=== PATIENT | male | born 1945 | race Caucasian/White ===

== ENCOUNTER 2025-02-18 14:19 | Observation (INO) ==
--- NOTE | 2025-02-18 14:22 | Emergency Department Note ---
Impression & Plan Acute confusion, Brain TIA, Hypertension ED Provider Note NAME: JEREMIAH GUILLEN AGE: 79 SEX: M : 1945 ARRIVES VIA: Ambulance INFORMANT: Patient, friend Prince, EMS ED PROVIDER(S): Ismael Matson MD CHIEF COMPLAINT: Change in mentation, confusion MEDICAL DECISION MAKING: Patient presents as a stroke alert. IV was established and blood work was obtained. Symptoms have essentially resolved at the time of presentation but the friend reports that the patient was essentially nonverbal for 45 minutes. Unclear whether or not the patient could have had a TIA or seizure but no reported seizure-like activity. Initial CT head negative. Patient has a nonfocal logic exam no reported trauma does not take any blood thinners. Patient was advised to stay in hospital but refused. AMA paperwork was completed and the patient was of sound mind after discussing risks and benefits including but not limited to disability pain stroke or cardiac arrest. Prior to the patient actually leaving the facility the patient had second thoughts after discussing more with his friend and the patient was amenable to staying in hospital. The patient was ordered first dose aspirin as well as atorvastatin 80 mg. I did speak with Dr. Horan. I also did inform the patient that he would have his license suspended given what occurred today until he follows up with a PCP. License suspension [facility] via fax per equal opportunity counselor. Patient admitted to the medicine service. Discussion w/ other healthcare providers: Dr. Horan inpatient medicine service Prior /Outside records reviewed: None Differential diagnosis: Infection, dehydration, metabolic abnormality, hypo/hyperglycemia, electrolyte imbalance, anemia, UTI, pneumonia, thyroid dysfunction among others were considered. Diagnostics, as interpreted by me: ECG: Sinus with PVCs noted sinus almost peers in a pattern of bigeminy, ventricular to 77 with normal intervals and axis. No ST elevations. Cardiac monitoring: An order was placed for continuous cardiac monitoring. The monitor shows a rate of 79 with sinus rhythm. Patient was placed on pulse oximetry Medical decision rules: None Imaging studies: I informally interpreted the patient's chest x-ray does not show obvious pneumonia with formal report to follow. HPI: I received a medical command call prior to arrival. 79-year-old male with reportedly no past medical history presented here for the [employer] game when around 1:00 the patient became less responsive seen to be confused only answering in one-word responses. No reported falls or trauma. Patient's blood pressure per EMS was 174/78 satting at 97% with a blood sugar of 105 sinus rhythm in the 70s. Patient reportedly does not take any blood thinning medications. Patient presents here the patient denies any current symptoms. He denies head neck chest back or abdominal pain. No reported nausea or vomiting. Patient denies any pertinent past medical or history. He reports appendicitis years ago. I did speak with the patient's friend Prince with whom he meets up with at [email or web address] and states when he got the car he seemed to be fine but then had this episode where he was unresponsive and nonverbal for about 45 minutes seem to be teary-eyed and subsequently started to say okay called EMS and they presented here. Prince his friend states that he does seem to be at his best compared to before. There was no reported syncope or seizure-like activity. PAST MEDICAL HISTORY: No pertinent past medical history PAST SURGICAL HISTORY: Appendectomy SOCIAL HISTORY: Denies alcohol tobacco or drug use. HOME MEDICATIONS: See Below ALLERGIES: See Below VITALS: See Below PHYSICAL EXAMINATION: GENERAL: NAD, non-toxic. EYE EXAM: Normal conjunctiva. PERRL, no anisocoria and EOM's grossly intact w/o pain. OROPHARYNX: Moist mucus membranes, grossly normal dentition. NECK: Trachea midline, no stridor. LUNGS: Clear to auscultation. Normal chest wall mechanics. HEART: NSR, no MRG. ABDOMEN: Abdomen soft, non-tender, no masses, no rebound or guarding. BACK: No CVA TTP. SKIN: No rashes and no bruising. UPPER EXTREMITIES: Upper extremities are grossly normal. LOWER EXTREMITIES: Grossly normal, no edema. NEURO EXAM: Awake and alert, follows commands, no obvious facial asymmetry, normal speech, moves all 4 extremities. Good [id number], no drift and no sensory deficits. Past Med/Surg History Problem List (Updated 02/18/25 @ 17:44 by Ismael Matson MD) Hypertension (Acute) Abnormal EKG Anemia Brain TIA (Acute) Acute confusion (Acute) Medical History Hearing loss uses hearing aids Surgical History S/P cataract surgery S/P appendectomy Family History Father Myocardial infarction Social History Smoking Status: Unknown if ever smoked Feels Safe at Home: Yes Allergies Allergies Allergy/AdvReac Type Severity Reaction Status Date / Time No Known Allergies Allergy Verified 02/18/25 15:18 Home Meds Home Medications Medication Instructions Recorded Confirmed No Known Home Medications 02/18/25 02/18/25 Results & Data (ED) Vital Signs Vital Signs - 24 hr 02/18/25 14:20 02/18/25 15:30 02/18/25 15:30 Pulse Rate 83 73 67 Respiratory Rate 16 15 15 Respiratory Effort / Characteristics Non-Labored Spontaneous Respiratory Depth Normal Respiratory Pattern Regular Blood Pressure 174/77 H 156/86 H 156/86 H Blood Pressure Mean 109 109 113 Blood Pressure Position Semi-fowlers Pulse Oximetry 97 94 95 Oxygen Delivery Method Room Air Sepsis Recent Fever Within 48 Hours No Sepsis New/Unexplained Change in Mental Status Yes Sepsis Action Taken by Nursing No Action Required 02/18/25 16:03 02/18/25 16:26 02/18/25 16:31 Pulse Rate 70 71 66 Respiratory Rate 20 14 Respiratory Effort / Characteristics Respiratory Depth Respiratory Pattern Blood Pressure 134/104 H 167/73 H Blood Pressure Mean 114 93 Blood Pressure Position Pulse Oximetry Oxygen Delivery Method Sepsis Recent Fever Within 48 Hours Sepsis New/Unexplained Change in Mental Status Sepsis Action Taken by Nursing 02/18/25 16:51 02/18/25 17:00 02/18/25 17:00 Pulse Rate 70 Respiratory Rate 22 Respiratory Effort / Characteristics Respiratory Depth Respiratory Pattern Blood Pressure 153/94 H 153/94 H Blood Pressure Mean 112 112 Blood Pressure Position Pulse Oximetry Oxygen Delivery Method Sepsis Recent Fever Within 48 Hours Sepsis New/Unexplained Change in Mental Status Sepsis Action Taken by Nursing 02/18/25 17:00 Pulse Rate 69 Respiratory Rate 19 Respiratory Effort / Characteristics Respiratory Depth Respiratory Pattern Blood Pressure Blood Pressure Mean Blood Pressure Position Pulse Oximetry Oxygen Delivery Method Sepsis Recent Fever Within 48 Hours Sepsis New/Unexplained Change in Mental Status Sepsis Action Taken by Prison Medications Current Medication List: was personally reviewed by me Laboratory Data Attestation: I reviewed the patient's lab results. 02/18/25 14:35 02/18/25 14:35 Lab Results 02/18/25 02/18/25 02/18/25 Range/Units 14:31 14:35 14:40 WBC 4.80 (4.8-10.8) K/ul RBC 3.64 L (4.70-6.10) M/uL Hgb 9.7 L (14.0-18.0) g/dl POC Hgb 10.2 L (14.0-18.0) g/dl Hct 30.6 L (42.0-52.0) % POC Hct 30 L (42-52) % MCV 84.1 (80.0-100.0) fL MCH 26.6 (25.0-34.0) pg MCHC 31.7 L (32.0-36.0) g/dL RDW Std Deviation 48.4 H (36.4-46.3) fL RDW Coeff of Robert 15.7 H (11.5-14.5) % Plt Count 172 (130-400) K/uL MPV 10.3 (9.4-12.4) fL Immature Gran % (Auto) 0.2 % Neut % (Auto) 67.1 % Lymph % (Auto) 17.3 % [place] % (Auto) 13.3 % Eos % (Auto) 1.7 % Baso % (Auto) 0.4 % Neut # (Auto) 3.22 (1.40-6.50) K/uL Lymph # (Auto) 0.83 L (1.20-3.40) K/uL [place] # (Auto) 0.64 H (0.11-0.59) K/uL Eos # (Auto) 0.08 (0.00-0.50) K/uL Baso # (Auto) 0.02 (0.00-0.20) K/uL Immature Gran # (Auto) 0.01 (0.01-0.20) K/uL PT 11.4 (9.0-12.0) Seconds INR 1.1 (0.9-1.1) APTT 26 (21-31) Seconds PTT Ratio 1.0 POC Sodium 137 (135-144) mmol/L Sodium 135 L (136-145) mmol/L POC Potassium 3.7 (3.3-5.0) mmol/L Potassium 3.6 (3.5-5.1) mmol/L POC Chloride 102 (101-112) mmol/L Chloride 104 (98-107) mmol/L Carbon Dioxide 26 (21-32) mmol/L POC Total CO2 22 L (24-31) mmol/L Anion Gap 5 (3-11) POC Anion Gap 18.0 (16-25) mmol/L POC BUN 19 H (7-18) mg/dl BUN 21 (6-23) mg/dl Creatinine 0.94 (0.6-1.4) mg/dl POC Creatinine 1.0 (0.6-1.3) mg/dl Est Cr Clr Drug Dosing 65.8 ml/min eGFR 83.49 BUN/Creatinine Ratio 22.3 H (10-20) Glucose 100 H (70-99(Fasting)) mg/dl POC Glucose 101 H (70-99) mg/dl POC Glucose (other) 98 (70-99) mg/dl Calcium 8.7 (8.6-10.3) mg/dl POC Ioniz Calcium Reina 1.14 (1.12-1.32) mmol/l Magnesium 1.8 (1.7-2.4) mg/dl Total Bilirubin 0.4 (0.2-1.0) mg/dl AST 13 (13-39) U/L ALT 7 (7-52) U/L Alkaline Phosphatase 57 (34-104) U/L Troponin I High Sens < 2.3 (0-20) pg/ml Total Protein 6.6 (6.0-8.3) gm/dl Albumin 3.5 (3.4-5.0) gm/dl Globulin 3.1 (2.5-4.0) gm/dl Albumin/Globulin Ratio 1.1 (0.9-2) Administered Medications Discontinued Medications Ioversol (Optiray 320 125ml) 118 ml IV ONCE ONE Stop: 02/18/25 14:26 Last Admin: 02/18/25 14:27 Dose: 118 ml Documented By: MARY Imaging Data Radiologist's Impression: Head CT 02/18/25 14:20 CT head without contrast History: Comparison: None Technique: Using multidetector thin collimation helical acquisition technique, axial, coronal and sagittal CT images from the skull base to the vertex were obtained without intravenous contrast. Dose reduction techniques were achieved by using automatic exposure control and/or adjustment of mA and/or kV according to patient size and/or use of iterative reconstruction technique. Findings: There is no acute territorial infarct, hemorrhage or abnormal mass effect. There is no intracranial mass identified. Moderate atrophy and small vessel ischemic white matter disease. No shift of midline structures. No depressed skull fracture. No extra-axial fluid collection. Posterior fossa structures are grossly unremarkable. Discussed with Dr. Matson at 2:40 PM on 02/18/2025 EST Impression No acute intracranial process. Chronic changes of atrophy and small vessel disease. Electronically signed by Dolores Andrade 02-18-2025 2:40 PM Head CTA 02/18/25 14:20 CT angiogram of the neck CT angiogram of the brain . Technique: HEAD CT: Using multidetector thin collimation helical acquisition technique, axial, coronal and sagittal CT images from the skull base to the vertex were obtained without intravenous contrast. HEAD and NECK CTA: During rapid bolus intravenous injection of nonionic contrast material, axial images were obtained using thin collimation multidetector helical technique from the base of the neck through the of vertex of the head. This CT angiogram data was reconstructed at thin intervals with mild overlap. 3D reconstructions were obtained. The axial source images, multiplanar reformations, 3D reconstructions in both maximum intensity projection display and volume rendered models were reviewed. Dose reduction techniques were achieved by using automatic exposure control and/or adjustment of mA and/or kV according to patient size and/or use of iterative reconstruction technique. Comp: Same day Ct head, History and Findings: Stroke Head CTA demonstrates : Distal vertebral arteries, basilar artery and posterior circulation appeared normal. Internal carotid arteries are patent. Minimal plaque noted in the cavernous portion. Patent bilateral ICAs. Patent bilateral MCAs Impression No significant stenosis. No aneurysm or malformation Electronically signed by Dolores Andrade 02-18-2025 2:48 PM Neck CTA 02/18/25 14:20 CT angiogram of the neck CT angiogram of the brain . Technique: HEAD CT: Using multidetector thin collimation helical acquisition technique, axial, coronal and sagittal CT images from the skull base to the vertex were obtained without intravenous contrast. HEAD and NECK CTA: During rapid bolus intravenous injection of nonionic contrast material, axial images were obtained using thin collimation multidetector helical technique from the base of the neck through the of vertex of the head. This CT angiogram data was reconstructed at thin intervals with mild overlap. 3D reconstructions were obtained. The axial source images, multiplanar reformations, 3D reconstructions in both maximum intensity projection display and volume rendered models were reviewed. Dose reduction techniques were achieved by using automatic exposure control and/or adjustment of mA and/or kV according to patient size and/or use of iterative reconstruction technique. Comp: Same day Ct head, History and Findings: Neck CTA: Subclavian veins are patent. Right common carotid artery is patent. Minimal plaque in the bulb area of the right carotid artery without significant stenosis. Patent right ICA. Patent left common carotid artery. Minimal plaque noted in the proximal left ICA. No stenosis of significance. Patent bilateral vertebral arteries with a slightly dominant left vertebral artery. Impression: No significant stenosis. Electronically signed by Dolores Andrade 02-18-2025 2:45 PM Chest X-Ray 02/18/25 14:37 Chest radiograph, one view History confusion Comparison: Findings: Single AP view of the chest performed. No focal consolidation or pleural effusion. No pneumothorax. The cardiomediastinal silhouette is within normal limits. Normal pulmonary vascularity. No evidence for lymphadenopathy. No visualized bony or soft tissue abnormality. Impression: Normal chest radiograph Electronically signed by Dolores Andrade 02-18-2025 3:16 PM Discharge Plan Visit Data Chief Complaint: Stroke/CVA Symptoms Stated Complaint: STROKE ALERT ED Provider: Ismael Matson Discharge Problem: Acute confusion, Brain TIA, Hypertension Patient Disposition: Against Medical Advice Condition: Fair Discharge Instructions Activity Restrictions/Additional Instructions: Please return to the emergency department if you have worsening or recurrent symptoms not amenable to at-home treatment. Please call for a follow-up appointment with her primary care physician. Please take your medications as prescribed. If you have other concerns and/or complaints please feel free to also call your primary care physician's office or return the ED for further evaluation, management, and treatment. Reason for visit: Acute confusion Treatments during visit: Blood work and imaging Testing revealed: Your testing showed anemia with a normal white count. Your platelet count was unremarkable. Your kidney function was unremarkable. Your CAT scans and chest x-ray are grossly unremarkable however your symptoms are concerning for possible TIA or mini stroke You did choose to leave AGAINST MEDICAL ADVICE. Please ensure that you establish immediate with a primary care as he may benefit from further evaluation. You may consider taking a baby aspirin as this may lower your risk for future stroke. Please follow up with: [Your Primary Care Provider] It is felt you are safe for discharge, however if any concerning signs or symptoms develop, call 911 or return to the Emergency Department. Specific signs or symptoms requiring return: Worsening symptoms numbness tingling weakness or confusion You are not to drive until you are seen and cleared by your primary care doctor. Prescriptions Prescriptions: No Action No Known Home Medications Referrals Referrals: PCP,NO [Primary Care Provider] - Discharge Problem: Hypertension Qualifiers: Hypertension type: unspecified Qualified Code(s): I10 - Essential (primary) hypertension
[2025-02-18] MEDS: OPTIRAY 320 125ml IV ONE (14:27)
--- NOTE | 2025-02-18 14:40 | CT Scan Report ---
CT head without contrast History: Comparison: None Technique: Using multidetector thin collimation helical acquisition technique, axial, coronal and sagittal CT images from the skull base to the vertex were obtained without intravenous contrast. Dose reduction techniques were achieved by using automatic exposure control and/or adjustment of mA and/or kV according to patient size and/or use of iterative reconstruction technique. Findings: There is no acute territorial infarct, hemorrhage or abnormal mass effect. There is no intracranial mass identified. Moderate atrophy and small vessel ischemic white matter disease. No shift of midline structures. No depressed skull fracture. No extra-axial fluid collection. Posterior fossa structures are grossly unremarkable. Discussed with Dr. Matson at 2:40 PM on 02/18/2025 EST Impression No acute intracranial process. Chronic changes of atrophy and small vessel disease. Electronically signed by Dolores Andrade 02-18-2025 2:40 PM
--- NOTE | 2025-02-18 14:46 | CT Scan Report ---
CT angiogram of the neck CT angiogram of the brain . Technique: HEAD CT: Using multidetector thin collimation helical acquisition technique, axial, coronal and sagittal CT images from the skull base to the vertex were obtained without intravenous contrast. HEAD and NECK CTA: During rapid bolus intravenous injection of nonionic contrast material, axial images were obtained using thin collimation multidetector helical technique from the base of the neck through the of vertex of the head. This CT angiogram data was reconstructed at thin intervals with mild overlap. 3D reconstructions were obtained. The axial source images, multiplanar reformations, 3D reconstructions in both maximum intensity projection display and volume rendered models were reviewed. Dose reduction techniques were achieved by using automatic exposure control and/or adjustment of mA and/or kV according to patient size and/or use of iterative reconstruction technique. Comp: Same day Ct head, History and Findings: Neck CTA: Subclavian veins are patent. Right common carotid artery is patent. Minimal plaque in the bulb area of the right carotid artery without significant stenosis. Patent right ICA. Patent left common carotid artery. Minimal plaque noted in the proximal left ICA. No stenosis of significance. Patent bilateral vertebral arteries with a slightly dominant left vertebral artery. Impression: No significant stenosis. Electronically signed by Dolores Andrade 02-18-2025 2:45 PM
[2025-02-18 14:47] LABS: Hematocrit (blood only) 30.6 % (42.0-52.0); Hemoglobin 9.7 g/dl (14.0-18.0); Immature Granulocytes # (auto) 0.01 K/uL (0.01-0.20); Immature Granulocytes % (auto) 0.2 %; Mean Corpuscular Hemoglobin 26.6 pg (25.0-34.0); Mean Corpuscular Volume 84.1 fL (80.0-100.0); Platelet Count 172 K/uL (130-400); RDW Standard Deviation 48.4 fL (36.4-46.3); Red Blood Count 3.64 M/uL (4.70-6.10); White Blood Count 4.80 K/ul (4.8-10.8)
--- NOTE | 2025-02-18 14:48 | CT Scan Report ---
CT angiogram of the neck CT angiogram of the brain . Technique: HEAD CT: Using multidetector thin collimation helical acquisition technique, axial, coronal and sagittal CT images from the skull base to the vertex were obtained without intravenous contrast. HEAD and NECK CTA: During rapid bolus intravenous injection of nonionic contrast material, axial images were obtained using thin collimation multidetector helical technique from the base of the neck through the of vertex of the head. This CT angiogram data was reconstructed at thin intervals with mild overlap. 3D reconstructions were obtained. The axial source images, multiplanar reformations, 3D reconstructions in both maximum intensity projection display and volume rendered models were reviewed. Dose reduction techniques were achieved by using automatic exposure control and/or adjustment of mA and/or kV according to patient size and/or use of iterative reconstruction technique. Comp: Same day Ct head, History and Findings: Stroke Head CTA demonstrates : Distal vertebral arteries, basilar artery and posterior circulation appeared normal. Internal carotid arteries are patent. Minimal plaque noted in the cavernous portion. Patent bilateral ICAs. Patent bilateral MCAs Impression No significant stenosis. No aneurysm or malformation Electronically signed by Dolores Andrade 02-18-2025 2:48 PM
[2025-02-18 15:05] LABS: Alanine Aminotransferase 7 U/L (7-52); Albumin Globulin Ratio 1.1 (0.9-2); Alkaline Phosphatase 57 U/L (34-104); Anion Gap 5 (3-11); Bilirubin,Total 0.4 mg/dl (0.2-1.0); Blood Urea Nitrogen 21 mg/dl (6-23); Calcium 8.7 mg/dl (8.6-10.3); Carbon Dioxide 26 mmol/L (21-32); Chloride 104 mmol/L (98-107); Creatinine Clr Calc Pharmacy 65.8 ml/min; Globulin 3.1 gm/dl (2.5-4.0); Glucose 100 mg/dl (70-99(Fasting)); Magnesium 1.8 mg/dl (1.7-2.4); Potassium 3.6 mmol/L (3.5-5.1); Sodium 135 mmol/L (136-145); Total Protein 6.6 gm/dl (6.0-8.3)
[2025-02-18 15:13] LABS: INR 1.1 (0.9-1.1); Partial Thromboplastin Time 26 Seconds (21-31); Prothrombin Time 11.4 Seconds (9.0-12.0)
--- NOTE | 2025-02-18 15:16 | XRay Report ---
Chest radiograph, one view History confusion Comparison: Findings: Single AP view of the chest performed. No focal consolidation or pleural effusion. No pneumothorax. The cardiomediastinal silhouette is within normal limits. Normal pulmonary vascularity. No evidence for lymphadenopathy. No visualized bony or soft tissue abnormality. Impression: Normal chest radiograph Electronically signed by Dolores Andrade 02-18-2025 3:16 PM
--- NOTE | 2025-02-18 16:28 | History & Physical Report ---
Date of Service February 18, 2025 Assessment & Plan (1) Brain TIA: (2) Acute confusion: (3) Anemia: (4) Abnormal EKG: Plan This is a 79 y/o male with no significant medical history who presented to the ED today as a stroke alert. Initial work-up in the ED was negative for stroke - CT brain, CTA head/neck were negative. Initial troponin negative. EKG personally reviewed and shows multiple PACs, single PVC. Pt also noted to be anemic with hemoglobin of 9.7. Pt does not recall being diagnosed with anemia previously, has not had routine colonoscopy. #Transient episode of confusion #Possible TIA - Observe in PCU overnight - MRI brain for further evaluation - Consult neurology - Lipid panel, A1c in the AM - Start daily low-dose aspirin, statin for now - PT/OT consults - ECHO #Anemia - uncertain etiology, uncertain chronicity - Check iron panel, B12, retic count - Will need outpatient f/u for additional work-up including possible colonoscopy +/- EGD #Abnormal EKG - Monitor on telemetry overnight - ECHO - Repeat EKG in the AM Pt seen and reviewed with collaborating physician, Dr. Horan. Plan of care discussed and as outlined above. Code status: full code DVT prophylaxis: Lovenox Pt will need to establish with a PCP at discharge. I spent a total of 62 minutes coordinating, documenting, and providing care for this patient excluding time spent in the performance of separately billed services or time spent by another provider/QHP. Rosalie Rowland PA-C History of Present Illness Chief Complaint: stroke alert Primary Care Provider: NO PCP This is a 79 y/o male with no significant medical history who presented to the ED today as a stroke alert. Pt was at the [employer] game when he became confused and was less responsive. History obtained from patient and his friend, Prince, at the bedside who witnessed the event. Pt's friend states that when he first met up with pt before the game, pt seemed his usual self. However, a few minutes later, pt seemed to space out and wasn't really responding though never seemed to pass out completely. Pt was sitting and standing the entire time (never fell to the ground or lost his balance). He started to come back around within a few minutes but still wasn't able to answer questions appropriately, wasn't making sense, struggled to communicate/find words. His friend was able to get help from the state police, and pt was brought to the ED via EMS. He has continued to improve since the initial evaluation by EMS. Pt reports some increased stresses in his personal life and states that he's had a lot on his mind, even today during the episode. He has some recollection of the today's events but attributes them to the stress he's currently experiencing. Currently feels back to his baseline. Denies visual changes, weakness, chest pain, palpitations, dyspnea, fevers, chills. Was just able to ambulate to the bathroom in the ED without needing assistance. He has chronic hearing loss, wears hearing aids. Does not routinely follow with a PCP. Typically, reports being very active and eating healthy diet. Allergies Allergy/AdvReac Type Severity Reaction Status Date / Time No Known Allergies Allergy Verified 02/18/25 15:18 Home Medications Medication Instructions Recorded Confirmed Type No Known Home Medications 02/18/25 02/18/25 History Past Med/Surg History Problem List (Updated 02/18/25 @ 17:44 by Ismael Matson MD) Hypertension (Acute) Abnormal EKG Anemia Brain TIA (Acute) Acute confusion (Acute) Medical History Hearing loss uses hearing aids Surgical History S/P cataract surgery S/P appendectomy Family History Father Myocardial infarction Social History Smoking Status: Unknown if ever smoked Feels Safe at Home: Yes Review of Systems Review of Systems: All systems reviewed & are unremarkable except as noted in Subjective Physical Exam Physical Exam: Please see physician note for details of the physical exam. Results & Data Results & Data Vital Signs (Past 12 Hours) Vital Signs Pulse Resp BP Pulse Ox O2 Del Method 02/18/25 16:26 71 02/18/25 15:30 73 15 156/86 H 94 02/18/25 14:20 83 16 174/77 H 97 Room Air Laboratory Results Lab Results 08/30/25 08/30/25 08/30/25 Range/Units 14:31 14:35 14:40 WBC 4.80 (4.8-10.8) K/ul RBC 3.64 L (4.70-6.10) M/uL Hgb 9.7 L (14.0-18.0) g/dl POC Hgb 10.2 L (14.0-18.0) g/dl Hct 30.6 L (42.0-52.0) % POC Hct 30 L (42-52) % MCV 84.1 (80.0-100.0) fL MCH 26.6 (25.0-34.0) pg MCHC 31.7 L (32.0-36.0) g/dL RDW Std Deviation 48.4 H (36.4-46.3) fL RDW Coeff of Robert 15.7 H (11.5-14.5) % Plt Count 172 (130-400) K/uL MPV 10.3 (9.4-12.4) fL Immature Gran % (Auto) 0.2 % Neut % (Auto) 67.1 % Lymph % (Auto) 17.3 % Chester % (Auto) 13.3 % Eos % (Auto) 1.7 % Baso % (Auto) 0.4 % Neut # (Auto) 3.22 (1.40-6.50) K/uL Lymph # (Auto) 0.83 L (1.20-3.40) K/uL Chester # (Auto) 0.64 H (0.11-0.59) K/uL Eos # (Auto) 0.08 (0.00-0.50) K/uL Baso # (Auto) 0.02 (0.00-0.20) K/uL Immature Gran # (Auto) 0.01 (0.01-0.20) K/uL PT 11.4 (9.0-12.0) Seconds INR 1.1 (0.9-1.1) APTT 26 (21-31) Seconds PTT Ratio 1.0 POC Sodium 137 (135-144) mmol/L Sodium 135 L (136-145) mmol/L POC Potassium 3.7 (3.3-5.0) mmol/L Potassium 3.6 (3.5-5.1) mmol/L POC Chloride 102 (101-112) mmol/L Chloride 104 (98-107) mmol/L Carbon Dioxide 26 (21-32) mmol/L POC Total CO2 22 L (24-31) mmol/L Anion Gap 5 (3-11) POC Anion Gap 18.0 (16-25) mmol/L POC BUN 19 H (7-18) mg/dl BUN 21 (6-23) mg/dl Creatinine 0.94 (0.6-1.4) mg/dl POC Creatinine 1.0 (0.6-1.3) mg/dl Est Cr Clr Drug Dosing 65.8 ml/min eGFR 83.49 BUN/Creatinine Ratio 22.3 H (10-20) Glucose 100 H (70-99(Fasting)) mg/dl POC Glucose 101 H (70-99) mg/dl POC Glucose (other) 98 (70-99) mg/dl Calcium 8.7 (8.6-10.3) mg/dl POC Ioniz Calcium Reina 1.14 (1.12-1.32) mmol/l Magnesium 1.8 (1.7-2.4) mg/dl Total Bilirubin 0.4 (0.2-1.0) mg/dl AST 13 (13-39) U/L ALT 7 (7-52) U/L Alkaline Phosphatase 57 (34-104) U/L Troponin I High Sens < 2.3 (0-20) pg/ml Total Protein 6.6 (6.0-8.3) gm/dl Albumin 3.5 (3.4-5.0) gm/dl Globulin 3.1 (2.5-4.0) gm/dl Albumin/Globulin Ratio 1.1 (0.9-2) Diagnostic Findings Head CT 02/18/25 14:20 CT head without contrast History: Comparison: None Technique: Using multidetector thin collimation helical acquisition technique, axial, coronal and sagittal CT images from the skull base to the vertex were obtained without intravenous contrast. Dose reduction techniques were achieved by using automatic exposure control and/or adjustment of mA and/or kV according to patient size and/or use of iterative reconstruction technique. Findings: There is no acute territorial infarct, hemorrhage or abnormal mass effect. There is no intracranial mass identified. Moderate atrophy and small vessel ischemic white matter disease. No shift of midline structures. No depressed skull fracture. No extra-axial fluid collection. Posterior fossa structures are grossly unremarkable. Discussed with Dr. Matson at 2:40 PM on 02/18/2025 EST Impression No acute intracranial process. Chronic changes of atrophy and small vessel disease. Electronically signed by Dolores Andrade 02-18-2025 2:40 PM Head CTA 02/18/25 14:20 CT angiogram of the neck CT angiogram of the brain . Technique: HEAD CT: Using multidetector thin collimation helical acquisition technique, axial, coronal and sagittal CT images from the skull base to the vertex were obtained without intravenous contrast. HEAD and NECK CTA: During rapid bolus intravenous injection of nonionic contrast material, axial images were obtained using thin collimation multidetector helical technique from the base of the neck through the of vertex of the head. This CT angiogram data was reconstructed at thin intervals with mild overlap. 3D reconstructions were obtained. The axial source images, multiplanar reformations, 3D reconstructions in both maximum intensity projection display and volume rendered models were reviewed. Dose reduction techniques were achieved by using automatic exposure control and/or adjustment of mA and/or kV according to patient size and/or use of iterative reconstruction technique. Comp: Same day Ct head, History and Findings: Stroke Head CTA demonstrates : Distal vertebral arteries, basilar artery and posterior circulation appeared normal. Internal carotid arteries are patent. Minimal plaque noted in the cavernous portion. Patent bilateral ICAs. Patent bilateral MCAs Impression No significant stenosis. No aneurysm or malformation Electronically signed by Dolores Andrade 02-18-2025 2:48 PM Neck CTA 02/18/25 14:20 CT angiogram of the neck CT angiogram of the brain . Technique: HEAD CT: Using multidetector thin collimation helical acquisition technique, axial, coronal and sagittal CT images from the skull base to the vertex were obtained without intravenous contrast. HEAD and NECK CTA: During rapid bolus intravenous injection of nonionic contrast material, axial images were obtained using thin collimation multidetector helical technique from the base of the neck through the of vertex of the head. This CT angiogram data was reconstructed at thin intervals with mild overlap. 3D reconstructions were obtained. The axial source images, multiplanar reformations, 3D reconstructions in both maximum intensity projection display and volume rendered models were reviewed. Dose reduction techniques were achieved by using automatic exposure control and/or adjustment of mA and/or kV according to patient size and/or use of iterative reconstruction technique. Comp: Same day Ct head, History and Findings: Neck CTA: Subclavian veins are patent. Right common carotid artery is patent. Minimal plaque in the bulb area of the right carotid artery without significant stenosis. Patent right ICA. Patent left common carotid artery. Minimal plaque noted in the proximal left ICA. No stenosis of significance. Patent bilateral vertebral arteries with a slightly dominant left vertebral artery. Impression: No significant stenosis. Electronically signed by Dolores Andrade 02-18-2025 2:45 PM Chest X-Ray 02/18/25 14:37 Chest radiograph, one view History confusion Comparison: Findings: Single AP view of the chest performed. No focal consolidation or pleural effusion. No pneumothorax. The cardiomediastinal silhouette is within normal limits. Normal pulmonary vascularity. No evidence for lymphadenopathy. No visualized bony or soft tissue abnormality. Impression: Normal chest radiograph Electronically signed by Dolores Andrade 02-18-2025 3:16 PM Medications Administered Discontinued Medications Ioversol (Optiray 320 125ml) 118 ml IV ONCE ONE Stop: 02/18/25 14:26 Last Admin: 02/18/25 14:27 Dose: 118 ml Documented By: MARY Supervising Physician Co-Signing Physician Notes Patient seen and examined independently. Discussed with above provider. Patient presented to the hospital with an episode of word finding difficulty. The symptoms resolved spontaneously. Stroke alert was called in the ED. Lab work is remarkable for anemia. Will do stroke workup, obtain iron panel, vitamin B12 level for anemia. EKG shows normal sinus rhythm with frequent PACs and PVC. Plan to monitor on telemetry, obtain echocardiogram. I also discussed with patient regarding screening colonoscopy given his anemia. Patient verbalized understanding and will get set up with a PCP after discharge. I have reviewed the advanced practitioner's documentation, and I agree with, and take responsibility for the plan of care I spent a total of 30 minutes coordinating, documenting, and providing care for this patient excluding time spent in the performance of separately billed services. All of the aforementioned completed while collaborating with the assigned advanced practitioner for a full treatment plan (3) Anemia Anemia type: unspecified type Qualified Code(s): D64.9 - Anemia, unspecified
[2025-02-18] MEDS ORDERED: PHARMACIST DISCHARGE MED REC CONSULT PRN (18:46)
--- NOTE | 2025-02-18 20:30 | Magnetic Resonance Report ---
CLINICAL HISTORY: Confusion, suspected TIA. TECHNIQUE: MRI brain was performed on 1.5 Marisol scanner including sagittal T1W, coronal FLAIR and axial T1W/T2 GRE/T2W/DWI/ADC acquisitions without intravenous contrast and was transferred to PACS for interrogation. CONTRATS DOSE: Non contrast study. COMPARISON: CT brain done on same day was reviewed. FINDINGS: Brain: Age-appropriate advanced global involutional changes are seen in brain parenchyma. T2 and FLAIR hyperintensities are seen in bilateral periventricular, deep and subcortical white matter, basal ganglia and reno. No abnormality seen on diffusion imaging. Findings are suggestive of mild microvascular ischemic changes of variable ages. Rest of the cerebral hemispheres, thalamic nuclei, midbrain, cerebellum and medulla oblongata return normal signals. Rest of the brain parenchyma is normal on all imaging sequences. No other signal voids on hemosensitive gradient echo sequences to prior intracranial hemorrhage or hemosiderin staining. No abnormal signal on diffusion-weighted imaging to suggest acute infarction. No evidence of hydrocephalus, midline shift or herniation. Posterior fossa: Cerebellopontine angles, vestibulocochlear nerve complexes and internal auditory canals appear grossly unremarkable. No evidence of Chiari malformation. Vascular system: No gross vascular abnormalities. The major vessels at the skull base including the carotids and the vertebrobasilar systems demonstrate normal patent flow voids. The dural venous sinuses appear unremarkable without evidence of thrombosis. Sella: No evidence of pituitary mass or sellar expansion. Globes and orbits: Bilateral orbits and optic nerves appear unremarkable. Paranasal sinuses: The paranasal sinuses appear unremarkable. Temporal bones, skull base and mastoids: Normal skull base seen. Well aerated mastoid air cells. Calvarium and scalp: Normal marrow signals are noted in the visualized bones. Scalp appears unremarkable. No evidence of fracture. IMPRESSIONS: 1. Age-appropriate advanced global involutional changes are seen with mild microvascular ischemic changes of variable ages. 2. No acute intracranial abnormality is seen. No intracerebral hemorrhage, acute infarction or mass effect. Electronically signed by Norman Hayes 02-18-2025 8:26 PM
[2025-02-18] MEDS: ASPIRIN CHEW 324 MG PO STA (20:46)
[2025-02-18] MEDS: ATORVASTATIN 40 MG TAB PO STA (20:46)
[2025-02-19 06:31] LABS: Hematocrit (blood only) 32.2 % (42.0-52.0); Hemoglobin 10.6 g/dl (14.0-18.0); Immature Granulocytes # (auto) 0.01 K/uL (0.01-0.20); Immature Granulocytes % (auto) 0.2 %; Mean Corpuscular Hemoglobin 27.2 pg (25.0-34.0); Mean Corpuscular Volume 82.8 fL (80.0-100.0); Platelet Count 185 K/uL (130-400); RDW Standard Deviation 48.2 fL (36.4-46.3); Red Blood Count 3.89 M/uL (4.70-6.10); Reticulocytes # 0.030 10^6/uL (0.020-0.100); White Blood Count 4.13 K/ul (4.8-10.8)
[2025-02-19 07:03] LABS: Anion Gap 5.0 (3-11); Blood Urea Nitrogen 20.0 mg/dl (6-23); Calcium 9.2 mg/dl (8.6-10.3); Carbon Dioxide 28.0 mmol/L (21-32); Chloride 106.0 mmol/L (98-107); Cholesterol 183.0 mg/dl (0-200); Creatinine Clr Calc Pharmacy 66.5 ml/min; Glucose 93.0 mg/dl (70-99(Fasting)); HDL Cholesterol 51.0 mg/dl; Iron 64.0 mcg/dl (35-175); Potassium 3.9 mmol/L (3.5-5.1); Sodium 139.0 mmol/L (136-145); Total Iron Binding Cap Calc 307.0 mcg/dl (250-450); Transferrin 219.0 mg/dl (200-360); Transferrin (FE) Percent Satur 21.0 % (20-50); Triglycerides 69.0 mg/dl (0-150)
[2025-02-19 07:18] LABS: Thyroid Stimulating Hormone 0.989 uIu/ml (0.300-4.500)
[2025-02-19 07:38] LABS: Hemoglobin A1C 5.3 % (4.5-5.6)
[2025-02-19] MEDS ORDERED: ENOXAPARIN INJ 40 MG/0.4 ML SYR SQ SCH (09:00)
[2025-02-19] MEDS ORDERED: ASPIRIN 81 MG ECTAB PO SCH (09:00)
[2025-02-19] MEDS ORDERED: ATORVASTATIN 40 MG TAB PO SCH (09:00)
--- NOTE | 2025-02-19 09:13 | Discharge Summary ---
Date of Service February 19, 2025 Admission HPI Per Admitting Provider This is a 79 y/o male with no significant medical history who presented to the ED today as a stroke alert. Pt was at the [employer] game when he became confused and was less responsive. History obtained from patient and his friend, Prince, at the bedside who witnessed the event. Pt's friend states that when he first met up with pt before the game, pt seemed his usual self. However, a few minutes later, pt seemed to space out and wasn't really responding though never seemed to pass out completely. Pt was sitting and standing the entire time (never fell to the ground or lost his balance). He started to come back around within a few minutes but still wasn't able to answer questions appropriately, wasn't making sense, struggled to communicate/find words. His friend was able to get help from the state police, and pt was brought to the ED via EMS. He has continued to improve since the initial evaluation by EMS. Pt reports some increased stresses in his personal life and states that he's had a lot on his mind, even today during the episode. He has some recollection of the today's events but attributes them to the stress he's currently experiencing. Currently feels back to his baseline. Denies visual changes, weakness, chest pain, palpitations, dyspnea, fevers, chills. Was just able to ambulate to the bathroom in the ED without needing assistance. He has chronic hearing loss, wears hearing aids. Does not routinely follow with a PCP. Typically, reports being very active and eating healthy diet. Admission Exam Per Admitting Provider Per ED physical exam (no physical exam documented on admission) GENERAL: NAD, non-toxic. EYE EXAM: Normal conjunctiva. PERRL, no anisocoria and EOM's grossly intact w/o pain. OROPHARYNX: Moist mucus membranes, grossly normal dentition. NECK: Trachea midline, no stridor. LUNGS: Clear to auscultation. Normal chest wall mechanics. HEART: NSR, no MRG. ABDOMEN: Abdomen soft, non-tender, no masses, no rebound or guarding. BACK: No CVA TTP. SKIN: No rashes and no bruising. UPPER EXTREMITIES: Upper extremities are grossly normal. LOWER EXTREMITIES: Grossly normal, no edema. NEURO EXAM: Awake and alert, follows commands, no obvious facial asymmetry, normal speech, moves all 4 extremities. Good [id number], no drift and no sensory deficits. Principal Diagnosis Stroke-like symptoms Anemia Vit. B12 deficiency Discharge Exam GENERAL: ED/WN elderly M in NAD, hard of hearing EYE EXAM: Normal conjunctiva. PERRL, EOMI NECK: supple LUNGS: Clear to auscultation. No wheezing HEART: regular ABDOMEN: Abdomen soft, non-tender SKIN: warm, dry EXTREMITIES: no LE edema, moves extremities. NEURO EXAM: Awake, alert, follows commands, no obvious facial asymmetry, normal speech, moves all 4 extremities. Discharge Data Allergies Allergy/AdvReac Type Severity Reaction Status Date / Time No Known Allergies Allergy Verified 02/18/25 15:18 Consultations 02/18/25 16:17 ED Decision to Admit Stat 02/19/25 07:50 Consult Neurology Routine Ordered Studies 02/18/25 14:20 CT angio head w con Stat Impression No significant stenosis. No aneurysm or malformation CT angio neck with con Stat Impression: No significant stenosis. CT head/brain wo con Stat Findings: There is no acute territorial infarct, hemorrhage or abnormal mass effect. There is no intracranial mass identified. Moderate atrophy and small vessel ischemic white matter disease. No shift of midline structures. No depressed skull fracture. No extra-axial fluid collection. Posterior fossa structures are grossly unremarkable. Discussed with Dr. Matson at 2:40 PM on 02/18/2025 EST Impression No acute intracranial process. Chronic changes of atrophy and small vessel disease. 02/18/25 16:37 MRI Brain [MR brain wo con] Routine FINDINGS: Brain: Age-appropriate advanced global involutional changes are seen in brain parenchyma. T2 and FLAIR hyperintensities are seen in bilateral periventricular, deep and subcortical white matter, basal ganglia and reno. No abnormality seen on diffusion imaging. Findings are suggestive of mild microvascular ischemic changes of variable ages. Rest of the cerebral hemispheres, thalamic nuclei, midbrain, cerebellum and medulla oblongata return normal signals. Rest of the brain parenchyma is normal on all imaging sequences. No other signal voids on hemosensitive gradient echo sequences to prior intracranial hemorrhage or hemosiderin staining. No abnormal signal on diffusion-weighted imaging to suggest acute infarction. No evidence of hydrocephalus, midline shift or herniation. Posterior fossa: Cerebellopontine angles, vestibulocochlear nerve complexes and internal auditory canals appear grossly unremarkable. No evidence of Chiari malformation. Vascular system: No gross vascular abnormalities. The major vessels at the skull base including the carotids and the vertebrobasilar systems demonstrate normal patent flow voids. The dural venous sinuses appear unremarkable without evidence of thrombosis. Sella: No evidence of pituitary mass or sellar expansion. Globes and orbits: Bilateral orbits and optic nerves appear unremarkable. Paranasal sinuses: The paranasal sinuses appear unremarkable. Temporal bones, skull base and mastoids: Normal skull base seen. Well aerated mastoid air cells. Calvarium and scalp: Normal marrow signals are noted in the visualized bones. Scalp appears unremarkable. No evidence of fracture. IMPRESSIONS: 1. Age-appropriate advanced global involutional changes are seen with mild microvascular ischemic changes of variable ages. 2. No acute intracranial abnormality is seen. No intracerebral hemorrhage, acute infarction or mass effect. Hospital Course (1) Brain TIA: (2) Acute confusion: (3) Anemia: (4) Abnormal EKG: Plan This is a 79 y/o male with no significant medical history who presented to the ED as a stroke alert. Initial work-up in the ED was negative for stroke - CT brain, CTA head/neck were negative. Initial troponin negative. EKG reviewed by admitting provider c/w multiple PACs, single PVC. Pt also noted to be anemic with hemoglobin of 9.7. Pt does not recall being diagnosed with anemia previously, has not had routine colonoscopy. #Transient episode of confusion #Possible TIA - Observed in PCU overnight - MRI brain obtained - 1. Age-appropriate advanced global involutional changes are seen with mild microvascular ischemic changes of variable ages. 2. No acute intracranial abnormality is seen. No intracerebral hemorrhage, acute infarction or mass effect. - Consult neurology - Lipid panel - LDL 118, current A1c 5.3% - Started daily low-dose aspirin, statin on admission - PT/OT consults - ECHO obtained - but not read at this time B12 level low at 161. Received IM vit. B12 shot this AM. Discussed with the pt that he is anemic and that he has low vit. B12 and will need to take supplement after his shot today, and follow up with his primary care doctor. Pt understands. Pt would like to be discharged as soon as possible. Discussed with him that his echo was not read yet and neurology plans to review his MRI and discuss further plan. I messaged neurology and cardiology to let them know that pt is trying to leave soon. I was later updated that pt signed out AMA. I sent Rx to his pharmacy for vit. B12, folate, aspirin and statin. #Anemia - uncertain etiology, uncertain chronicity - Check iron panel, B12, retic count - B12 low as above - Will need outpatient f/u for additional work-up including possible colonoscopy +/- EGD #Abnormal EKG - Monitor on telemetry overnight - ECHO obtained but not read at this time Total Time Total Time Spent Total Time Spent (In Minutes): 40 Discharge Plan Discharge Items Patient Disposition: Home - Self-Care Reason For Visit: TIA Discharge Diagnosis: Stroke-like symptoms Anemia Vit. B12 deficiency Condition on Discharge: Fair Activity: Per Instructions section Non-emergency contact: Primary Care Provider and Neurologist Call non-emergency contact if: you have any medication questions and your symptoms worsen Follow-up/Referrals: PCP,NO [Primary Care Provider] - Diet: Heart Healthy Addtl Attending Provider Instructions: Follow up with primary care physician and neurologist. You should be seen by primary care physician within 1 week. You were found to be vitamin B12 deficient - recommend supplement. You were found to be anemic (low red blood cell count), and will need to follow up with primary care physician for further work-up. You did not wait for echocardiogram to be read by nitrate operator. You did not wait for neurology evaluation. Per information we have, recommend to continue taking aspirin and statin. Follow up with your health care provider closely for further recommendation. As you discussed in ER - you are not advised to drive at this time - information sent to [facility] by ER. Pending Studies at Discharge: No Stand-Alone Forms: [facility], Smoking Cessation, Medications to Prevent Stroke Medications and DC Order Prescriptions: New cyanocobalamin (vitamin B-12) 500 mcg Tablet 1,000 mcg PO QAM Qty: 60 0RF folic acid 1 mg Tablet 1 mg PO QAM Qty: 30 0RF atorvastatin 40 mg Tablet 40 mg PO QAM Qty: 30 0RF aspirin 81 mg Tablet,Delayed Release (Dr/Ec) 81 mg PO QAM Qty: 30 0RF Discharge Orders: Discharge Order (Routine); Ordered 02/19/25 Ordered By: Thiago Rodriguez Admission Data Admit Date/Time: 02/18/25 16:44 Attending Provider: Thiago Rodriguez Admit Provider: Cristhian Horan Primary Care Provider: PCP,EMILY Other Providers: Cristhian Horan; Allyn Moses; Randal Dawn; Allyn Langley; Harinder Morin; Ned Roche; Raza Hector; Andre Self; Mariza Shaw; Frederick Alvarez; Madhu Kapoor; Mike Salazar; John William; Roxanna Martinez; Andre Thompson; Grace Loredo; Yvette Toussaint Other Interventions: Discharge Summary Assessment (RN) Last Done: 02/19/25 11:30
[2025-02-19] MEDS: CYANOCOBALAMIN 1000 MCG/ML VIAL IM ONE (09:51)
[2025-02-19] MEDS: FOLIC ACID 1 MG TAB PO SCH (09:51)
[2025-02-19] MEDS ORDERED: STROKE PATIENT DISCHARGE STA (11:34)
--- NOTE | 2025-02-19 11:47 | XCELERA ---
[id number]
--- NOTE | 2025-02-19 12:01 | Electrocardiogram Report ---
Test Reason : Blood Pressure : */* mmHG Vent. Rate : 77 BPM Atrial Rate : 77 BPM P-R Int : 132 ms QRS Dur : 96 ms QT Int : 396 ms P-R-T Axes : -27 -11 -18 degrees QTcB Int : 448 ms Sinus rhythm with occasional Premature ventricular complexes and Premature atrial complexes possible Inferior infarct , age undetermined Abnormal ECG No previous ECGs available Confirmed by Rivera Bill ([id number]) on 02/19/2025 12:00:57 PM Referred By: REFERRED SELF Confirmed By: Rivera Bill
[2025-02-20] MEDS ORDERED: CYANOCOBALAMIN (B-12) 500 MCG TABLET PO SCH (09:00)
--- NOTE | 2025-02-21 13:31 | Pharmacy Report ---
Pharmacist Stroke Counseling - Date of Service February 21, 2025 - Scope: Pharmacy has been consulted to provide medication discharge counseling for this patient admitted with transient ischemic attack as per the Pharmacist Discharge Counseling for Stroke Patients Protocol. - Medications on Discharge: New Rx's Medication Instructions Recorded aspirin 81 mg tablet,delayed 81 mg PO QAM #30 tabs 02/19/25 release atorvastatin 40 mg tablet 40 mg PO QAM #30 tabs 02/19/25 cyanocobalamin (vitamin B-12) 500 1,000 mcg (2 x 500 mcg) PO QAM #60 02/19/25 mcg tablet tabs folic acid 1 mg tablet 1 mg PO QAM #30 tabs 02/19/25 - Action: The above medications, specifically ones for stroke treatment/prophylaxis, have been reviewed in detail with the patient and/or patient commercial pest control representative(s) prior to discharge. This includes indication, common adverse reactions, drug interactions, and medication administration. Medication counseling has been employed using the teach-back method to ensure understanding. - Outcome: The patient and/or patient commercial pest control representative(s) have demonstrated understanding of the medications. 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 * No concerns noted by patient. No obvious barriers to medication compliance noted. Thank you for allowing pharmacy to be involved in the care of this patient. Please call [phone] with any additional questions
== END 2025-02-19 12:29 | disposition home or self-care (01) ==
LOC: ED 14:19 → 2S 14:19 → SUATTDRO 16:44 → 2S 18:01